=== PATIENT | female | born 1955 | race Caucasian/White ===

== ENCOUNTER → 2021-02-01 | Outpatient (CLI) | payer MEDICARE, BC ==
[~2021-02-01] MED LIST: BACTRIM DS 8001 TAB PO; COLACE 100100 MG/CAP PO; NORCO 325 MG-51 TAB PO
== END ==
LOC: MC.RAD 13:58
DX: N63.20 Unspecified lump in the left breast, unspecified quadrant (principal); N64.59 Other signs and symptoms in breast; R59.0 Localized enlarged lymph nodes

== ENCOUNTER → 2021-02-02 | Outpatient (CLI) | payer MEDICARE, BC | LOC: MC.RAD 14:54 | DX: N63.20 Unspecified lump in the left breast, unspecified quadrant (principal); Z98.82 Breast implant status | CPT/HCPCS: 30634 ==

== ENCOUNTER 2021-10-16 09:58 | Outpatient (RCR) | payer BC | END 2021-10-21 | disposition still patient (30) | LOC: MKS.ESL.PT | DX: C50.412 Malignant neoplasm of upper-outer quadrant of left female breast (principal) ==